=== PATIENT | female | born 1975 | race African-American/Black ===

== ENCOUNTER 2016-07-07 23:00 | Inpatient (IN) | payer OTHER ==
[~2016-07-07] VITALS: Ht 175.3 cm; Wt 145.1 kg
--- NOTE | ~2016-07-07 | O ---
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 FACILITY: [facility]. PREOPERATIVE DIAGNOSIS: Closed right mid shaft both bone forearm fracture. POSTOPERATIVE DIAGNOSIS: Closed right mid shaft both bone forearm fracture. PROCEDURE: Open reduction and internal fixation, right both bone forearm fracture. COMPLICATIONS: None. DRAINS: None. SPECIMENS: None. ESTIMATED BLOOD LOSS: 5 mL. ANESTHESIA TYPE: General. FINDINGS: 1. Stable reduction. 2. Synthes 6-hole LCP plate on the ulna with a 7-hole LCP plate on the radius. HISTORY AND INDICATIONS: The patient is a 41-year-old right-hand dominant female who sustained a fall which resulted in a closed right both bone forearm fracture. She was admitted to the hospital. Plans were made for surgical treatment. Risks, benefits, alternatives and indications for surgery were discussed with her in detail. Risks include but are not limited to pain, bleeding, infection, injury to nerves or blood vessels, persistent pain despite surgical intervention, failure of any repairs, reconstructions, progression of any preexisting chondral injury, stiffness, need for further surgery as well as complications related to anesthesia such as stroke, heart attack, pulmonary complications, thromboembolic disease and . Despite these risks, she [facility] [address] [place] [address] OPERATIVE REPORT Name: IRWIN GEE Room #: 537-P [facility] IN .R.#: [id number] Admission: 07/07/16 Attend Phys: Dee Brannon Discharge: Date of : 77 Report #: [id number] wished to proceed. DESCRIPTION OF PROCEDURE: After the right upper extremity was correctly identified in the preoperative holding area as the operative extremity, the patient was taken to the operating room, placed supine on operating table and general endotracheal anesthesia was induced without complication. All bony prominences and subcutaneous nerves were padded appropriately. Prophylactic antibiotics of 2 grams Ancef were administered at appropriate time. The right upper extremity was prepped and draped in standard sterile fashion after a tourniquet was applied to the right arm. Total tourniquet time was approximately 75 minutes. Right upper extremity was prepped and draped in standard sterile fashion and time-out procedure was performed. A 7 cm incision was made on the ulnar border of the forearm in a longitudinal fashion. Full thickness skin flaps were developed. The anterior compartment musculature was dissected free of the extensor compartment musculature, much of the fascia had already been ruptured secondary to the injury and the ulnar shaft was denuded of bone in this location. The traumatic fascial rupture was then extended proximally and distally with a 15 blade to complete a fascial incision to allow access to the ulna. Care was taken to avoid stripping soft tissues from the ulna and then a reduction maneuver was performed after the fracture site was cleared and the ulna was reduced. It maintained its own stability allowing for direct placement of plate and not requiring provisional fixation. The 6-hole Synthes LCP plate was applied in a dual compression fashion and good compression across the fracture site was noted. There was some comminution present, but there is good cortical contact throughout. After this was completed, x-rays were taken to confirm appropriate anatomic reduction and appropriate internal fixation and then the wound was copiously irrigated. The fascial layer was closed with interrupted 0 Vicryl sutures, skin was closed with 2-0. Attention was then turned towards the radius. The forearm was supinated. The incision was placed over the fracture site and an approximately 7 cm longitudinal incision was made as well. The incision was placed over the FCR muscle belly and tendon and dissection was taken down through this interval. The superficial radial nerve was identified and was protected throughout the procedure. The patient had sustained soft tissue trauma essentially along the brachioradialis. She had dissected pathway to avoid additional soft tissue disruption. This was used as access to the radial shaft. Blunt dissection was performed. Care was taken to avoid excessive soft tissue stripping. There were 3 pieces of cortical comminution that had no soft tissue attachments and these were discarded. The fracture fragment ends were debrided and then the fracture was thoroughly irrigated and then the fracture was reduced. It was able to maintain its reduction as well. A 7-hole plate was selected and that was applied to the volar cortex of the radius and then dual compression technique was utilized as well. The plate was precontoured to allow for good dorsal [address] [address] OPERATIVE REPORT Name: IRWIN GEE Room #: 537-P [facility] IN M.R.#: [id number] Admission: 07/07/16 Attend Phys: Dee Brannon Discharge: Date of : 77 Report #: [id number] compression. The 2 screws near the fracture were placed along intentionally to allow the plate to be reduced to the shaft to provide good compression. These were switched out to appropriately-sized 16 mm screws after the plate was reduced to the bone. The wound was then thoroughly irrigated after final x-rays were taken and the skin was closed with 2-0 Vicryl. Both incisions were closed with adeline followed by a sterile dressing. A long arm splint that was well padded across the elbow and wrist was then applied. The patient was awakened from anesthesia and taken to recovery room in stable condition. There were no complications and all counts were recorded as correct. <ELECTRONICALLY SIGNED> By: David Farnsworth MD 07/09/16 0638 1820 15 David Farnsworth MD /nt
--- NOTE | ~2016-07-07 | HC ---
[facility] [place] [address] CONSULTATION Name: IRWIN GEE Room #: 537-P ADM IN M.R.#: [id number] Admission: 07/07/16 Attend Phys: Dee Brannon Discharge: Date of : 77 Report #: [id number] THIS REPORT FOR: //name// CC: FAM physician/PCP Dee Scanlon DATE OF SERVICE: 07/08/2016 REQUESTING PHYSICIAN: Dr. Tawny Stout of the emergency room. REASON FOR CONSULTATION: Right both bone forearm fracture. PAST MEDICAL HISTORY: Hypertension. MEDICATIONS: She reports one medication for hypertension. ALLERGIES: She reports Codeine causes nausea. PAST SURGICAL HISTORY: Left knee scope, cervical fusion, gallbladder resection, section x 2. She denied any medical complications related to anesthesia. FAMILY HISTORY: Noncontributory. She denies any anesthetic complications. 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 She is a smoker. She denies drug or alcohol abuse. REVIEW OF SYSTEMS: Positive for right forearm pain. Negative for numbness or tingling. Pain is controlled with medicine. No nausea, vomiting, diarrhea, chest pain, shortness of breath, mental status changes, complaints or neurologic complaints. No lymphedema. HISTORY OF PRESENT ILLNESS: The patient is 41-year-old right-hand dominant female who was at her mother's house after a concert last night and the puppy came up to her. She lost her balance and fell and struck her right forearm on the edge of the fireplace sustaining both bone forearm fracture that is closed. She is admitted to the hospital after being brought there for evaluation. On questioning, she reported pain in her forearm that was controlled with oral meds and IV meds. She denied any signs consistent with compartment syndrome or nerve compromise. PHYSICAL EXAMINATION: VITAL SIGNS: Afebrile, vital signs stable. GENERAL: She is awake, but otherwise healthy appearing female, alert and oriented, no acute distress, lying supine in hospital bed. [address] [address] CONSULTATION Name: IRWIN GEE Room #: 537-P ADM IN M.R.#: [id number] Admission: 07/07/16 Attend Phys: Dee Brannon Discharge: Date of : 77 Report #: [id number] EXTREMITIES: Left upper extremity: Bilateral lower extremity showed no signs of acute orthopedic injury. She has palpable pulse with brisk capillary refill with grossly normal neurovascular examination and normal skin. Right upper extremity: She is in a long arm splint. Compartments are compressible. Brisk capillary refill is present. She has sensation intact to distribution of the median, ulnar and radial nerves. She does not demonstrate much finger motion as she is having pain with excursion of the fingers. The stretch is within acceptable limits for this diagnosis. There does not appear to be signs of a compartment syndrome. RADIOGRAPHS: Xrays of the right forearm demonstrated displaced shortened right both bone forearm fracture. IMPRESSION: A 41-year-old right hand dominant female with a closed right both bone forearm fracture. PLAN: I had a discussion with the patient about the treatment options. I recommended surgical management and this will give her the best chance of having a possible functioning arm. I discussed with her risks, benefits, alternatives and indications for surgery. Plan will be to proceed with right forearm open reduction and internal fixation. We will look to begin early range of motion as pain will tolerate based on fixation strength. <ELECTRONICALLY SIGNED> By: David Farnsworth MD 07/08/16 1314 1049 1210 David Farnsworth MD /nt
--- NOTE | ~2016-07-07 | EKG ---
[place] [address] [employer] [place] [place] [address] ELECTROCARDIOGRAM REPORT Name: GELYPRASHANTHIRWIN MCGREGOR Room #: 537-P ADM IN M.R.#: [id number] Admission: 07/07/16 Attend Phys: Dee Brannon Discharge: Date of : 77 Report #: [id number] THIS REPORT FOR: //name// 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[place] : 1975 Requested By: Kristina Stout Order Number: [id number] MD: Adams Roman Measurements Intervals [place] Rate: 79 P: 31 WI: 162 QRS: 0 QRSD: 107 T: 1 QT: 401 QTc: 460 Interpretive Statements Sinus rhythm Ventricular trigeminy Borderline T abnormalities, inferior leads No previous ECG available for comparison Electronically Signed On 07-09-2016 7:43:14 CDT by Adams Roman [email or web address] <ELECTRONICALLY SIGNED> By: Adams Roman MD, [facility] 07/09/16 0743 55 55 Adams Roman MD, [facility] /EPI
[~2016-07-07 23:00] MED LIST: COZAAR 50 MG TA50 M2 PO; LISINOPRIL5 MG PO; NAPROSYN500 MG PO; NEURONTIN 300300 M1 PO; NORCO 5-325 TA1 EACH PO; NORFLEX100 MG PO; OXYCODONE-ACET1 EACH PO; PERCOCET 5-3251 EACH PO; PREDNISONE50 MG PO; TRAZODONE HCL100 MG PO; ULTRAM 50MG TAB50 MG PO; XANAX1 MG PO
[2016-07-07 23:01] VITALS: BP 140/78
[2016-07-07] MEDS ORDERED: HYDROCHLOROTH12.5 M1 PO (23:08)
[2016-07-08] VITALS (11 sets, daily range): BP systolic 119–169; BP diastolic 62–93
[2016-07-08 00:03] LABS: ABSOLUTE NEUTROPHILS 6.1 thou/uL (1.4-8.2); BASOPHILS 0.7 % (0.0-2.0); EOSINOPHILS 2.9 % (0.0-3.0); HEMATOCRIT 37.8 % (37.0-47.0); HEMOGLOBIN 13.2 gm/dL (12.0-15.0); LYMPHOCYTES 25.8 % (24.0-44.0); MCH 30.6 pg (26.0-34.0); MCV 87.5 fL (80.0-100.0); MONOCYTES 5.8 % (1.0-8.0); PLATELET COUNT 252 thou/uL (150-400); POLYS 64.8 % (36.0-66.0); RBC 4.32 mil/uL (4.20-5.00); RDW 12.7 % (10.5-14.5); WBC 9.5 thou/uL (4.0-11.0)
[2016-07-08 00:04] LABS: MANUAL DIFF NO
[2016-07-08 00:12] LABS: CALCIUM 8.8 mg/dL (8.5-10.1)
[2016-07-08 00:18] LABS: PROTIME 10.7 Seconds (9.3-11.4)
[2016-07-09] VITALS (8 sets, daily range): BP systolic 131–150; BP diastolic 60–85
[2016-07-09] MEDS ORDERED: MS CONTIN15 MG PO (15:56)
== END 2016-07-09 17:37 | disposition home or self-care (01) | DRG 512 ==
LOC: ER 23:00 → EROBS 23:53 → 5S 23:53
PROVIDERS: Emergency Medicine
PROC: 0PSK04Z Reposition Right Ulna with Internal Fixation Device, Open Approach (ICD-10-PCS; principal; 2016-07-08)
PROC: 0PSH04Z Reposition Right Radius with Internal Fixation Device, Open Approach (ICD-10-PCS; principal; 2016-07-08)
DX: S52.391A Other fracture of shaft of radius, right arm, initial encounter for closed fracture (principal); S52.291A Other fracture of shaft of right ulna, initial encounter for closed fracture; F17.210 Nicotine dependence, cigarettes, uncomplicated; K21.9 Gastro-esophageal reflux disease without esophagitis; F32.9 Major depressive disorder, single episode, unspecified; F12.10 Cannabis abuse, uncomplicated; F41.9 Anxiety disorder, unspecified; I10 Essential (primary) hypertension; E87.6 Hypokalemia; W18.31XA Fall on same level due to stepping on an object, initial encounter; Z88.6 Allergy status to analgesic agent; Y93.89 Activity, other specified; Y92.89 Other specified places as the place of occurrence of the external cause; Y99.8 Other external cause status; Z79.899 Other long term (current) drug therapy
CPT/HCPCS: 10785; 50010; 50101; 50347; 50386; 51412; 51739; 56525; 56526; 56667; 57091; 62110; 62900; 70005

== ENCOUNTER 2018-01-13 18:53 | Emergency (ER) | payer OTHER ==
[~2018-01-13] VITALS: Ht 175.3 cm; Wt 89.4 kg
[~2018-01-13 18:53] MED LIST changes: +HYDROCHLOROTH12.5 M1 PO; +MS CONTIN15 MG PO
[2018-01-13] MEDS ORDERED: NORVASC5 MG PO (19:23)
[2018-01-13] MEDS ORDERED: ASPIR 8181 MG PO (19:23)
[2018-01-13] MEDS ORDERED: ZOFRAN ODT4 MG PO (20:17)
[2018-01-13] MEDS ORDERED: PREDNISONE 20 M20 MG PO (20:17)
[2018-01-13] MEDS ORDERED: TESSALON PERLE100 MG PO (20:17)
[2018-01-13] MEDS ORDERED: GUAIFEN-CODEINE10 ML PO (20:39)
== END 2018-01-13 20:42 | disposition home or self-care (01) ==
LOC: ER 18:53
DX: J06.9 Acute upper respiratory infection, unspecified (principal); F17.210 Nicotine dependence, cigarettes, uncomplicated; I10 Essential (primary) hypertension; F41.9 Anxiety disorder, unspecified; Z88.5 Allergy status to narcotic agent; Z98.890 Other specified postprocedural states; Z90.49 Acquired absence of other specified parts of digestive tract

== ENCOUNTER 2018-03-10 18:09 | Emergency (ER) | payer OTHER ==
[~2018-03-10] VITALS: Ht 175.3 cm; Wt 129.7 kg
[~2018-03-10 18:09] MED LIST changes: +ASPIR 8181 MG PO; +COZAAR 50 MG TA50 M1 PO; -COZAAR 50 MG TA50 M2 PO; +GUAIFEN-CODEINE10 ML PO; +NORVASC5 MG PO; +PREDNISONE 20 M20 MG PO; +TESSALON PERLE100 MG PO; +ZOFRAN ODT4 MG PO
[2018-03-10] MEDS ORDERED: CYCLOBENZAPRINE5 MG PO (20:15)
[2018-03-10] MEDS ORDERED: NORCO 10-325 T1 EACH PO (20:15)
[2018-03-10 20:35] VITALS: BP 134/85
== END 2018-03-10 20:35 | disposition home or self-care (01) ==
LOC: ER 18:09
DX: M54.5 Low back pain (principal); R91.8 Other nonspecific abnormal finding of lung field; I10 Essential (primary) hypertension; Z90.49 Acquired absence of other specified parts of digestive tract; Z98.890 Other specified postprocedural states; F17.210 Nicotine dependence, cigarettes, uncomplicated; Z88.5 Allergy status to narcotic agent; W01.0XXA Fall on same level from slipping, tripping and stumbling without subsequent striking against object, initial encounter; Y93.89 Activity, other specified; Y92.89 Other specified places as the place of occurrence of the external cause; Y99.8 Other external cause status

== ENCOUNTER 2018-03-23 09:17 | Emergency (ER) | payer OTHER ==
[~2018-03-23] VITALS: Ht 175.3 cm; Wt 130.2 kg
[~2018-03-23 09:17] MED LIST changes: +CYCLOBENZAPRINE5 MG PO; +NORCO 10-325 T1 EACH PO
[2018-03-23] MEDS ORDERED: FLEXERIL PO (11:48)
[2018-03-23] MEDS ORDERED: MOBIC15 MG PO (11:48)
[2018-03-23] MEDS ORDERED: NORCO 5-325 TA1 EACH PO (11:48)
[2018-03-23 12:26] VITALS: BP 120/52
== END 2018-03-23 12:15 | disposition home or self-care (01) ==
LOC: ER 09:17
DX: M54.5 Low back pain (principal); I10 Essential (primary) hypertension; F17.210 Nicotine dependence, cigarettes, uncomplicated; Z90.49 Acquired absence of other specified parts of digestive tract; Z98.890 Other specified postprocedural states; Z88.5 Allergy status to narcotic agent

== ENCOUNTER 2021-01-18 00:30 | Emergency (ER) | payer OTHER ==
[~2021-01-18] VITALS: Ht 175.3 cm; Wt 141.1 kg
[~2021-01-18 00:30] MED LIST changes: +FLEXERIL PO; +MOBIC15 MG PO
[2021-01-18] MEDS ORDERED: ACCUNEB SO1.25 MG/1 INH (01:01)
[2021-01-18] MEDS ORDERED: SERTRALINE HCL100 MG PO (01:01)
[2021-01-18 02:10] LABS: ABSOLUTE NEUTROPHILS 5.3 thou/uL (1.4-8.2); BASOPHILS 0.7 % (0.0-2.0); EOSINOPHILS 3.4 % (0.0-3.0); HEMATOCRIT 37.1 % (37.0-47.0); HEMOGLOBIN 12.3 gm/dL (12.0-15.0); LYMPHOCYTES 28.7 % (24.0-44.0); MCH 29.6 pg (26.0-34.0); MCHC 33.2 g/dL (28.0-37.0); MCV 89.3 fL (80.0-100.0); MONOCYTES 4.6 % (1.0-8.0); PLATELET COUNT 335 thou/uL (150-400); POLYS 62.6 % (36.0-66.0); RBC 4.15 mil/uL (4.20-5.00); RDW 12.8 % (10.5-14.5); WBC 8.5 thou/uL (4.0-11.0)
[2021-01-18 02:11] LABS: CALCIUM 8.9 mg/dL (8.5-10.1); CREATININE 1.1 mg/dL (0.6-1.0); POTASSIUM 3.7 mmol/L (3.5-5.1)
[2021-01-18 02:21] LABS: ALBUMIN 3.4 g/dL (3.4-5.0); TOTAL BILIRUBIN 0.4 mg/dL (0.2-1.0); TOTAL PROTEIN 8.4 g/dL (6.4-8.2)
[2021-01-18 04:36] VITALS: BP 161/80
--- NOTE | 2021-01-18 08:25 | EKG ---
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 : 1975 Requested By: Ariel Blackmon Order Number: [id number] MD: Blayne Singh Measurements Intervals [place] Rate: 84 P: 44 VT: 168 QRS: 1 QRSD: 109 T: 13 QT: 375 QTc: 444 Interpretive Statements Sinus rhythm Low voltage, precordial leads Compared to ECG 07/07/2016 23:56:22 Low QRS voltage now present Ventricular premature complex(es) no longer present T-wave abnormality no longer present Electronically Signed On 01-18-2021 8:25:35 CDT by Blayne Singh [email or web address] <ELECTRONICALLY SIGNED> By: Blayne Singh MD, [facility] 01/18/21 0825 014 0142 Blayne Singh MD, [facility] /EPI
== END 2021-01-18 04:20 | disposition home or self-care (01) ==
LOC: ER 00:30
PROVIDERS: Emergency Medicine
DX: B34.9 Viral infection, unspecified (principal); Z20.822 Contact with and (suspected) exposure to COVID-19; R07.89 Other chest pain; R06.02 Shortness of breath; I10 Essential (primary) hypertension; F17.210 Nicotine dependence, cigarettes, uncomplicated; Z90.49 Acquired absence of other specified parts of digestive tract; Z79.899 Other long term (current) drug therapy; Z88.5 Allergy status to narcotic agent

== ENCOUNTER 2021-02-16 05:54 | Emergency (ER) | payer OTHER ==
[~2021-02-16] VITALS: Ht 175.3 cm; Wt 145.2 kg
[~2021-02-16 05:54] MED LIST changes: +ACCUNEB SO1.25 MG/1 INH; +SERTRALINE HCL100 MG PO
[2021-02-16 06:42] LABS: BASOPHILS 0.5 % (0.0-2.0); EOSINOPHILS 4.2 % (0.0-3.0); HEMATOCRIT 37.8 % (37.0-47.0); HEMOGLOBIN 12.8 gm/dL (12.0-15.0); LYMPHOCYTES 28.4 % (24.0-44.0); MCH 30.1 pg (26.0-34.0); MCHC 33.8 g/dL (28.0-37.0); MCV 89.2 fL (80.0-100.0); MONOCYTES 4.2 % (1.0-8.0); PLATELET COUNT 309 thou/uL (150-400); POLYS 62.7 % (36.0-66.0); RBC 4.23 mil/uL (4.20-5.00)
[2021-02-16 07:18] LABS: ANION GAP 11 mmol/L (7-16); BUN 14 mg/dL (7-18); CALCIUM 9.1 mg/dL (8.5-10.1); CHLORIDE 102 mmol/L (98-107); CO2 22 mmol/L (21-32); CREATININE 0.9 mg/dL (0.6-1.0); GLUCOSE 208 mg/dL (74-106); SODIUM 135 mmol/L (136-145)
[2021-02-16 07:26] LABS: POTASSIUM 4.7 mmol/L (3.5-5.1)
[2021-02-16 07:28] LABS: ALBUMIN 3.5 g/dL (3.4-5.0); SGOT 27 U/L (15-37); SGPT 30 U/L (14-59); TOTAL BILIRUBIN 0.5 mg/dL (0.2-1.0); TOTAL PROTEIN 8.2 g/dL (6.4-8.2)
[2021-02-16 10:27] VITALS: BP 99/74
--- NOTE | 2021-02-17 07:39 | EKG ---
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: damaris : 1975 Requested By: Marcie Petersen Order Number: [id number] MD: Blayne Singh Measurements Intervals [place] Rate: 79 P: 44 [place]: 171 QRS: -2 QRSD: 91 T: 7 QT: 387 QTc: 444 Interpretive Statements Sinus rhythm Low voltage, precordial leads Compared to ECG 01/18/2021 01:42:43 No significant changes Electronically Signed On 02-17-2021 7:39:09 DIE TRIMMER by Blayne Singh [email or web address] <ELECTRONICALLY SIGNED> By: Blayne Singh MD, [facility] 02/17/21 0739 0628 0628 Blayne Singh MD, [facility] /EPI
== END 2021-02-16 10:27 | disposition home or self-care (01) ==
LOC: ER 05:54
PROVIDERS: Emergency Medicine
DX: R22.43 Localized swelling, mass and lump, lower limb, bilateral (principal); Z20.822 Contact with and (suspected) exposure to COVID-19; R07.89 Other chest pain; R05.9 Cough, unspecified; I10 Essential (primary) hypertension; F17.210 Nicotine dependence, cigarettes, uncomplicated; F12.90 Cannabis use, unspecified, uncomplicated; Z98.890 Other specified postprocedural states; Z90.49 Acquired absence of other specified parts of digestive tract; Z79.51 Long term (current) use of inhaled steroids; Z79.891 Long term (current) use of opiate analgesic; Z79.899 Other long term (current) drug therapy; Z88.6 Allergy status to analgesic agent

== ENCOUNTER 2021-04-03 00:32 | Emergency (ER) | payer OTHER ==
[~2021-04-03] VITALS: Ht 175.3 cm; Wt 143.8 kg
[2021-04-03 02:51] LABS: ABSOLUTE NEUTROPHILS 5.6 thou/uL (1.4-8.2); HEMATOCRIT 38.7 % (37.0-47.0); HEMOGLOBIN 13.1 gm/dL (12.0-15.0); LYMPHOCYTES 27.6 % (24.0-44.0); MCH 30.1 pg (26.0-34.0); MCHC 33.8 g/dL (28.0-37.0); MCV 89.2 fL (80.0-100.0); MONOCYTES 4.6 % (1.0-8.0); PLATELET COUNT 350 thou/uL (150-400); POLYS 62.8 % (36.0-66.0); RBC 4.34 mil/uL (4.20-5.00)
[2021-04-03 02:52] LABS: CALCIUM 9.1 mg/dL (8.5-10.1); CREATININE 1.4 mg/dL (0.6-1.0); POTASSIUM 3.7 mmol/L (3.5-5.1)
[2021-04-03 02:55] LABS: URINE BILIRUBIN NEGATIVE (Negative); URINE BLOOD 2+ (Negative); URINE CLARITY CLEAR; URINE COLOR YELLOW; URINE GLUCOSE-RANDOM* NEGATIVE (Negative); URINE KETONES NEGATIVE (Negative); URINE LEUKOCYTES-REFLEX TRACE (Negative); URINE NITRITE-REFLEX NEGATIVE (Negative); URINE PROTEIN (DIPSTICK) NEGATIVE (Negative); URINE SPECIFIC GRAVITY 1.025 (1.005-1.035)
[2021-04-03 03:03] LABS: ALBUMIN 3.6 g/dL (3.4-5.0); TOTAL BILIRUBIN 0.4 mg/dL (0.2-1.0); TOTAL PROTEIN 8.7 g/dL (6.4-8.2)
[2021-04-03 03:50] LABS: BACTERIA-REFLEX 1-9 Few /HPF (None Seen); CRYSTALS None Seen /LPF (None Seen); HYALINE CASTS 4-10 Moderate /LPF (None Seen); MUCUS 4-6 Moderate strn/LPF (None Seen); SQUAMOUS 0-3 Few /LPF (0-3); URINE RBC 3-10 Few /HPF (NONE SEEN); URINE WBC-REFLEX 6-15 Few /HPF (0-5); WBC CLUMPS Few (None Seen)
[2021-04-03] MEDS ORDERED: ZOFRAN ODT4 MG PO (04:23)
[2021-04-03 04:35] VITALS: BP 116/71
[2021-04-06] MEDS ORDERED: BACTRIM DS TAB1 EACH PO (07:29)
== END 2021-04-03 04:36 | disposition home or self-care (01) ==
LOC: ER 00:32
PROVIDERS: Emergency Medicine
DX: R11.10 Vomiting, unspecified (principal); R51.9 Headache, unspecified; I10 Essential (primary) hypertension; F17.210 Nicotine dependence, cigarettes, uncomplicated; F12.90 Cannabis use, unspecified, uncomplicated; Z98.890 Other specified postprocedural states; Z90.49 Acquired absence of other specified parts of digestive tract; Z79.51 Long term (current) use of inhaled steroids; Z79.899 Other long term (current) drug therapy; Z88.5 Allergy status to narcotic agent

== ENCOUNTER 2021-05-05 21:48 | Emergency (ER) | payer OTHER ==
[~2021-05-05] VITALS: Ht 175.3 cm; Wt 144.7 kg
[~2021-05-05 21:48] MED LIST changes: +BACTRIM DS TAB1 EACH PO
[2021-05-05] MEDS ORDERED: CEPHALEXIN500 MG PO (22:20)
[2021-05-05] MEDS ORDERED: NAPROSYN500 MG PO (22:20)
[2021-05-05 22:42] VITALS: BP 117/62
== END 2021-05-05 22:44 | disposition home or self-care (01) ==
LOC: ER 21:48
DX: N76.2 Acute vulvitis (principal); I10 Essential (primary) hypertension; F17.210 Nicotine dependence, cigarettes, uncomplicated; F12.90 Cannabis use, unspecified, uncomplicated; Z98.890 Other specified postprocedural states; Z90.49 Acquired absence of other specified parts of digestive tract; Z79.51 Long term (current) use of inhaled steroids; Z79.899 Other long term (current) drug therapy; Z88.5 Allergy status to narcotic agent